=== PATIENT | female | born 1960 | race Caucasian/White ===

== ENCOUNTER 2016-12-06 06:49 | Day surgery (SDC) | payer BC ==
[~2016-12-06 06:49] MED LIST: Lactated Ringers 1,000 ML IV SCH; Sodium Chloride 0.9% 10 ML Syringe FLUSH PRN
[2016-12-06] MEDS ORDERED: Midazolam 1 MG/ML 2 ML SDV IV ONE (08:00)
[2016-12-06] MEDS ORDERED: Propofol 200 MG/20 ML SDV IV ONE (08:00)
--- NOTE | 2016-12-06 08:23 | PCM.OPNOTE ---
- General Post-Op/Procedure Note Date of Surgery/Procedure: 12/06/16 Operative Procedure(s): c scope with bx Findings: rectal polyp Pre Op Diagnosis: screening Post-Op Diagnosis: rectal polyp Anesthesia Technique: MAC Primary Surgeon: Booker Howell Anesthesia Provider: Carolann Laird Pathology: rectal polyp Complications: None Condition: Good Free Text/Narrative:: see dictation
--- NOTE | 2016-12-06 10:36 | OR ---
DATE OF OPERATION: 12/06/2016 SURGEON: Booker Howell MD PROCEDURE PERFORMED: Colonoscopy with cold forceps biopsy. PREOPERATIVE DIAGNOSIS: Colon cancer screening. POSTOPERATIVE DIAGNOSIS: Rectal polyp. INDICATION FOR PROCEDURE: This is a 56-year-old white female, who is referred for her initial screening colonoscopy. She was offered and accepted same. DESCRIPTION OF OPERATION: After an excellent IV sedation was administered, digital rectal exam was performed. No marked abnormality was noted. The flexible colonoscope was inserted and advanced without difficulty to the cecum. The prep was excellent. The following findings were noted: Ascending colon, unremarkable. Transverse colon, unremarkable. Descending colon, unremarkable. Rectum, a small polypoid lesion, biopsied with cold biopsy forceps and sent for permanent. Colon was deflated as the scope was removed. The patient tolerated the procedure well, and was taken to recovery room in good condition. /[id number] NADIA/JOYCE
== END 2016-12-06 09:54 | disposition home or self-care (01) ==
LOC: FB.SDS 06:49
PROVIDERS: ATTEND Surgery
DX: Z12.11 Encounter for screening for malignant neoplasm of colon (principal); D12.8 Benign neoplasm of rectum; Z79.899 Other long term (current) drug therapy; Z90.49 Acquired absence of other specified parts of digestive tract; Z98.51 Tubal ligation status; Z98.890 Other specified postprocedural states
CPT/HCPCS: 45380; 88305; J2250; J2704; J7120

== ENCOUNTER 2022-03-07 08:49 | Day surgery (SDC) | payer BC ==
[2022-03-07] MEDS ORDERED: Propofol 200 MG/20 ML SDV IV ONE (08:50)
[2022-03-07] MEDS ORDERED: Sodium Chloride 0.9% 10 ML Syringe FLUSH PRN (09:15)
[2022-03-07] MEDS ORDERED: Lactated Ringers 1,000 ML IV SCH (09:15)
== END 2022-03-07 12:32 | disposition home or self-care (01) ==
LOC: FB.SDS 08:49
PROVIDERS: ATTEND Surgery
DX: Z12.11 Encounter for screening for malignant neoplasm of colon (principal); K62.1 Rectal polyp; Z86.010 Personal history of colon polyps; Z79.899 Other long term (current) drug therapy; Z98.890 Other specified postprocedural states; Z87.891 Personal history of nicotine dependence
CPT/HCPCS: 00812; 45384; 88305; J2704